=== PATIENT | female | born 1960 | race Caucasian/White ===

== ENCOUNTER 2018-09-23 16:03 | Emergency (ER) | payer OTHER ==
[~2018-09-23] VITALS: Ht 152.4 cm; Wt 68.0 kg
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
[2018-09-23 18:20] VITALS: BP 128/72
--- NOTE | 2018-09-23 18:20 | NUR ---
Patient discharged to home in stable condition. Written and verbal after care instructions given. Patient verbalizes understanding of instruction.
== END 2018-09-23 18:21 | disposition home or self-care (01) ==
LOC: ER 16:03
DX: K94.03 Colostomy malfunction (principal); K21.9 Gastro-esophageal reflux disease without esophagitis; F20.9 Schizophrenia, unspecified; F32.9 Major depressive disorder, single episode, unspecified; Z90.710 Acquired absence of both cervix and uterus; Z85.41 Personal history of malignant neoplasm of cervix uteri; Z88.0 Allergy status to penicillin; Z88.1 Allergy status to other antibiotic agents